=== PATIENT | male | born 2000 | race Hispanic/Latino ===

== ENCOUNTER 2018-05-01 01:08 | Emergency (ER) | payer SELFPAY ==
[2018-05-01 01:36] LABS: #Lymphocytes 1.6 thou/uL (1.20-3.40); #Monocytes 0.5 thou/uL (0.11-0.59); #Neutrophils 6.6 thou/uL (1.40-6.50); %Basophils 0.3 % (0.0-1.0); %Eosinophils 0.2 % (0.0-10.0); %Lymphocytes 18.5 % (28.0-48.0); %Monocytes 5.8 % (0.0-4.0); %Neutrophils 75.3 % (31.0-61.0); Hemoglobin 16.3 g/dL (14.0-18.0); Mean Corpuscular HGB CONC 35.7 g/dL (32.0-36.0); Mean Corpuscular Hemoglobin 32.1 pg (25.0-35.0); Mean Corpuscular Volume 89.8 fL (78.0-98.0); Mean Platelet Volume 8.4 fL (7.4-10.4); Platelet Count 187 thou/uL (130-400); RBC Distribution Width 11.8 % (11.5-14.5); Red Blood Cell (RBC) Count 5.08 mill/uL (4.00-5.20); White Blood Cell (WBC) Count 8.7 thou/uL (4.8-10.8)
[2018-05-01 01:56] LABS: Amphetamine Not Detected (NotDetected); Barbiturates Screen Not Detected (NotDetected); Benzodiazepine Screen Not Detected (NotDetected); Cocaine Metabolite Screen Detected (NotDetected); Medtox Control Line Valid? VALID (VALID); Medtox Reader # READER 1; Methadone Not Detected (NotDetected); Methamphetamine Not Detected (NotDetected); Opiate Screen Not Detected (NotDetected); Oxycodone Screen Not Detected (NotDetected); Phencyclidine (PCP) Not Detected (NotDetected); THC/Cannabinoid Screen Not Detected (NotDetected); Tricyclic Screen Not Detected (NotDetected)
[2018-05-01 02:02] LABS: ALT (SGPT) 24 U/L (8-55); AST (SGOT) 28 U/L (10-45); Albumin 4.9 g/dL (3.5-5.0); Alcohol 287 mg/dL (Less than 10); Alkaline Phosphatase 94 U/L (Less than 750); Anion Gap 16 mmol/L (10-20); BUN (Urea Nitrogen) 13 mg/dL (8.4-21.0); Bilirubin, Total 0.5 mg/dL (0.2-1.2); Calc. Creatinine Clearance 0 mL/min (70-130); Calcium 9.5 mg/dL (7.8-10.44); Carbon Dioxide 24 mmol/L (22-29); Chloride 100 mmol/L (98-107); Estimated GFR-MDRD 84; Globulin 3.4 g/dL (2.4-3.5); Glucose 140 mg/dL (70-105); Potassium 3.4 mmol/L (3.5-5.1); Protein, Total 8.3 g/dL (6.0-8.3); Sodium 137 mmol/L (136-145)
[2018-05-01 02:17] LABS: Acetaminophen Less than 6.0 mcg/mL (10.0-30.0); Alcohol 285 mg/dL (Less than 10); CK (CPK) 535 U/L (30-200); Salicylate Less than 8.0 mg/dL (15.0-30.0)
[2018-05-01] MEDS ORDERED: Adacel (T-DAP) 0.5 ML VIAL ONE (02:28)
[2018-05-01] MEDS ORDERED: Lidocaine 2% PF 5 ML VIAL ONE (02:57)
[2018-05-01] MEDS ORDERED: Amoxicillin/Potassium Clav 875 MG TAB ONE (03:42)
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
== END 2018-05-01 04:02 | disposition home or self-care (01) ==
LOC: ERS 01:08
DX: S01.511A Laceration without foreign body of lip, initial encounter (principal); F14.10 Cocaine abuse, uncomplicated; F10.129 Alcohol abuse with intoxication, unspecified; V49.9XXA Car occupant (driver) (passenger) injured in unspecified traffic accident, initial encounter
CPT/HCPCS: 12051; 70450; 70486; 71045; 71260; 72125; 74177; 80053; 80306; 80307; 82550; 84443; 85025; 87040; 90471; 90715; 96360; G0390; J2001